=== PATIENT | male | born 1970 | race Two or more races ===

== ENCOUNTER 2022-01-20 20:38 | Emergency (ER) | payer OTHER ==
[~2022-01-20] VITALS: Ht 182.9 cm; Wt 105.8 kg
[2022-01-20] MEDS ORDERED: ALBUTEROL SULF 2.5 MG/0.5ML(0.5%) NEB SOLN NEB ONE (21:00)
[2022-01-20] MEDS ORDERED: DexAMETHasone SOD PHOS 10MG/1ML VIAL INJ IM ONE (21:00)
[2022-01-20] MEDS ORDERED: IPRATROPIUM BROM 0.5 MG/2.5ML INH SOL NEB ONE (21:00)
[2022-01-20] MEDS ORDERED: TAMIFLU PO (22:33)
[2022-01-20 23:31] VITALS: BP 127/79
== END 2022-01-20 23:33 | disposition home or self-care (01) ==
LOC: ER 20:38
DX: J10.1 Influenza due to other identified influenza virus with other respiratory manifestations (principal); J45.909 Unspecified asthma, uncomplicated; Z20.822 Contact with and (suspected) exposure to COVID-19
CPT/HCPCS: 36415; 87426; 87804; 94640; 96372; 99283; J1100; J7644